=== PATIENT | male | born 1960 | race Caucasian/White ===

== ENCOUNTER → 2017-05-29 | Outpatient (CLI) | payer OTHER ==
--- NOTE | 2017-05-29 15:00 | KCIC ---
Three-view left knee radiographs 05/29/2017 CLINICAL HISTORY: Medial left knee pain post fall. AP, lateral and oblique digital radiographs of the left knee were obtained. No fracture or dislocation of the left knee is seen. Mild degenerative changes are seen involving all 3 compartments of the left knee consisting of varying degrees of disc space narrowing, subchondral sclerosis and mild associated osteophyte formation. The most significant joint compartment narrowing is seen involving the medial compartment. There is no radiographic evidence of a suprapatellar joint effusion. IMPRESSION: No fracture or dislocation of the left knee is seen. Mild degenerative changes are seen as outlined above. Electronically signed by: Harsh Moreno MD (05/29/2017 2:56 PM) [id number]
== END | disposition home or self-care (01) ==
LOC: KCIC 14:36
PROVIDERS: ATTEND Physician Assistant
DX: M25.562 Pain in left knee (principal); W19.XXXA Unspecified fall, initial encounter
CPT/HCPCS: 73562